=== PATIENT | male | born 1960 | race Caucasian/White ===

== ENCOUNTER → 2023-12-16 09:34 | Outpatient (REF) | payer OTHER, SELFPAY | LOC: HWRAD 09:34 | PROVIDERS: ATTENDING PHYSICIAN Family Medicine | DX: N50.3 Cyst of epididymis (principal) | CPT/HCPCS: 76870; 93976 ==

== ENCOUNTER 2024-08-14 21:21 | Observation (INO) | payer BC, SELFPAY ==
[2024-08-14] VITALS (42 sets, daily range): BP systolic 102–223; BP diastolic 59–201; BMI 28.3; BMI 25.2
[2024-08-14] MEDS: NITROSTAT (SUBLINGUAL) 0.4 MG SL (19:01)
[2024-08-14] MEDS: NITROGLYCERIN PREMIX 250 IV (19:11)
[2024-08-14 19:16] LABS: % Basophils 0.6 % (0-2); % Immature Granulocytes 0.2 % (0-0.5); % Lymphocytes 24.5 % (20.5-51.1); % Monocytes 9.9 % (1.7-9.3); % Neutrophils 63.8 % (42.2-75.2); Absolute Eosinophils 0.1 10^3/uL (0-0.7); Absolute Lymphocytes 1.5 10^3/uL (1.2-3.4); Absolute Monocytes 0.6 10^3/uL (0.1-0.6); Hematocrit 42.8 % (39.0-52.0); Mean Corp Hgb Conc. 32.7 g/dL (33.0-37.0); Mean Corpuscular Hgb 26.8 pg (27.0-31.0); Mean Corpuscular Volume 81.8 fL (80.0-94.0); Nucleated Red Blood Cells % 0 % (-); Platelet Count 186 10^3/uL (130-400); Red Blood Cell Count 5.23 10^6/uL (4.70-6.10); Red Cell Dist. Width 13.4 % (11.5-14.5); White Blood Cell Count 6.2 10^3/uL (4.8-10.8)
[2024-08-14] MEDS: HEPARIN 4000 UNITS IV (19:20)
[2024-08-14 19:23] LABS: APTT 30.2 Sec (23.4-35.0); INR 0.98; PT 13.3 Sec (11.4-14.6)
[2024-08-14 19:24] LABS: ALT (SGPT) 26 U/L (0-50); AST (SGOT) 34 U/L (17-59); Albumin 4.6 g/dl (3.5-5.0); Alkaline Phosphatase 46 U/L (38-126); Blood Urea Nitrogen 27 mg/dl (9-20); Calcium 9.5 mg/dl (8.4-10.2); Carbon Dioxide 23 mmol/L (22-30); Chloride 102 mmol/L (98-107); Estimated Creatinine Clearance 78 ml/min; Glucose 98 mg/dl (70-99); Potassium 4.1 mmol/L (3.5-5.1); Sodium 138 mmol/L (135-145); Total Bilirubin 0.5 mg/dl (0.2-1.3); Total Protein 7.5 g/dl (6.3-8.2); eGFR > 60.00
[2024-08-14 19:33] LABS: Troponin I < 0.012 ng/ml
--- NOTE | 2024-08-14 19:47 | ED.GENMED ---
History of Present Illness
General
Chief Complaint: Chest Pain
Source: patient
Exam Limitations: none
Time Seen by Provider: 08/14/24 18:57
Nursing documentation reviewed up to this point in time: agreed with
History of Present Illness
History of Present Illness:
Patient with history of CAD, presents ED secondary to sudden onset of chest pain while he was at home, associated with shortness of breath, dizziness, and diaphoresis. Patient also reports associated neck discomfort. Chest pain described as
pressure, nonradiating, without any alleviating or exacerbating factors. Patient was given full-strength aspirin by paramedics as well as nitroglycerin x 2, with moderate improvement in symptoms. Denies previous history of chest pain. However, in
2016, patient received diagnostic catheterization secondary to family history as well as high calcium score, which revealed 100% occlusion of RCA with collaterals, unable to be stented. In addition, patient also had 40% lesion in LAD. Denies
recent illness. Denies recent travel or surgery. Denies back pain. Denies leg pain or swelling.
Past History
Past History
ED Past Medical History: CAD, HTN and Hypercholesterolemia
ED Past Surgical History: None
Social History
Tobacco: Non-smoker
Alcohol: None
Personal:
Living: with family
Employment: Employed (sales)
Family History
Family History: Early CAD
Review of Systems
Review of Systems
Allergies reviewed?: Yes
All Other Systems: ROS reviewed and negative except as documented in HPI and ROS
Constitutional: Reports no symptoms
Respiratory: Reports trouble breathing
Cardiac: Reports chest pain and diaphoresis
ABD/GI: Reports no symptoms
Musculoskeletal: Reports no symptoms
Skin: Reports no symptoms
Neurological: Reports dizzy
Phy Exam
Physical Exam
Physical Exam:
Physical Exam
General: mild distress, not acutely ill. afebrile.
Head: nc/at. eomi
Neck: supple. normal range of motion.
Heart: s1/s2 regular rate and rhythm, no murmur. equal radial pulses.
Lungs: no acute respiratory distress. clear bilaterally
Abdomen: normal bowel sounds. not tender.
Neuro: alert and oriented. no focal neurological deficits
Skin: no rash
Psychiatric: well kept. interactive and cooperative
Extremities: no edema. no calf tenderness.
Scores
Heart Score for Chest Pain Patients
STEMI patient?: No
History: Moderately Suspicious
ECG: Normal
Age: >45 - <65 years
Risk Factors: >/= 3 Risk Factors or History of CAD
Troponin: </= Normal Limit
Heart Score for Chest Pain Patients: 4
Heart Score Risk: 20.3% MACE over next 6 weeks
Course
Orders/Labs/Results
Orders:
Orders
08/14/24 Dinner
Cholesterol Lowering
At Your Request: Full Participation
Cholesterol Lowering: Sodium, 2 Gram
Comment: please discontinue after midnight, NPO with breakfast
08/14/24 18:50
EKG [Electrocardiogram (*1)] Urgent
Reason for Study: Chest Pain
EKG- Treatment ONCE
08/14/24 18:57
Complete Blood Count/With Diff Urgent
Comprehensive Metabolic Panel Urgent
PT/INR [Prothrombin Time] Urgent
PTT Urgent
Comment: Obtain baseline before beginning heparin infusion if not already collected
Troponin I Urgent
08/14/24 18:59
Nitroglycerin 100 mg/250 ml [Nitroglycerin Premix] 100 mg in 250 ml .ROUTE .STK-MED
Nitroglycerin Sublingual [Nitrostat (Sublingual)] 0.4 mg .ROUTE .STK-MED ONE
08/14/24 19:06
Nitroglycerin Sublingual [Nitrostat (Sublingual)] 0.4 mg SL NOW STA
08/14/24 19:10
Heparin 4,000 units IV NOW STA
Nursing to Place Non Medication Order As Directed
Physician Order: PTT 6 hours after initial start of Heparin infusion
Above order entered?: Yes
08/14/24 19:15
Heparin 70955 Units/250 ml 25,000 units in 250 ml IV PER PROTOCOL
Weight to be used for heparin protocol in kilograms (kg):: 87
Protocol:: Cardiac Tx/Acute Coronary
PTT Goal Range to be used:: PTT 73 to 111 seconds
Order type:: Initial
INITIAL Infusion Dose (UNITS/KG/hr) & then follow protocol:: 12 units/kg/hr
Infusion Dose in UNITS/hr & then follow protocol (UNITS/hr):: 1,000
INFUSION RATE in mL/hr & then follow protocol (mL/hr):: 10
PTT less than or equal to 64 seconds:: Increase rate by 200 units/hr (+ 2 mL/hr)
PTT 64.1 to 72.9 seconds:: Increase rate by 100 units/hr (+ 1 mL/hr)
PTT 73 to 111 seconds:: Target Range. No change in rate.
PTT 111.1 to 130.9 seconds:: Decrease rate by 100 units/hr (- 1 mL/hr)
PTT 131 to 199.9 seconds:: HOLD for 1 hr. Then decrease rate by 200 units/hr (- 2 mL/hr)
PTT greater than or equal to 200 seconds:: HOLD for 2 hrs & Notify Provider. Then decrease by 200 units/hr (-
2 mL/hr)
Lab follow-up:: Each change, PTT q6h until 2 consecutive are therapeutic. Then PTT
daily.
Nitroglycerin 100 mg/250 ml [Nitroglycerin Premix] 100 mg in 250 ml IV PER PROTOCOL
Initial dose in mcg/min, then titrate:: 10
Titrate to keep:: Chest Pain Free
Titrate by mcg/min:: 5 mcg/min, may increase by 10 mcg/min if dose > 20 mcg/min
Frequency of titrations (minutes):: every 3-5 minutes
Maximum dose in mcg/min:: 200
Begin to taper infusion when:: Remained at goal for 2hrs
Taper by mcg/min:: 5 mcg/min
Frequency of taper (minutes) if patient maintains goal:: 30
Taper to off?: Yes
If infusion off & no longer maintaining goal:: Contact Provider
08/14/24 19:46
EKG [Electrocardiogram (*1)] Urgent
Reason for Study: Chest Pain
EKG- Treatment ONCE
08/14/24 21:11
Admit/Transfer Patient As Directed
Co-Sign Provider:
Level of Care: Observation services
Assign to:: IVU
Physician / Group: hospitalist
Diagnosis: acute chest pain
Code Status As Directed
Resuscitation Status: Full Code
PRN Pain Medication Management As Directed
May give lesser potent ordered pain med per pt: Yes
preference::
Protocol:: Medication orders for pain may be administered in a
manner that supports deferring to patient preference
when the pt is:
- Requesting an ordered lesser potent pain medication.
Least to most potent pain medications are defined
as: acetaminophen < NSAID < tramadol < opioids
(morphine, oxycodone, hydromorphone).
- Requesting a lesser dose of the same medication IF
ORDERED.
- Requesting a less intrusive route of administration
if both routes are prescribed by the provider (PO <
IV).
08/14/24 22:00
Flush (0.9% Sodium Chloride) [Flush (Nss)] See Dose Instructions IV PER PROTOCOL
08/14/24 22:22
Acetaminophen [Tylenol] 650 mg PO Q4HPRN PRN
Aspirin Low Dose EC [Aspir Low (Enteric Coated)] 81 mg PO HS
Atorvastatin [Lipitor] 40 mg PO HS
Mag Hydrox/Al Hydrox/Simeth [Maalox] 30 ml PO Q4HPRN PRN
Nitroglycerin 100 mg/250 ml [Nitroglycerin Premix] 100 mg in 250 ml IV PER PROTOCOL
Currently infusing. Continue current dose and titrate:: Yes
Titrate to keep:: Chest Pain Free
Titrate by mcg/min:: 5 mcg/min, may increase by 10 mcg/min if dose > 20 mcg/min
Frequency of titrations (minutes):: every 3-5 minutes
Maximum dose in mcg/min:: 200
Begin to taper infusion when:: Remained at goal for 2hrs
Taper by mcg/min:: 5 mcg/min
Frequency of taper (minutes) if patient maintains goal:: 30
Taper to off?: Yes
If infusion off & no longer maintaining goal:: Contact Provider
Ondansetron Injectable [Zofran] 4 mg IV Q6HPRN PRN
08/14/24 22:22
Echo 2D MMode Color/Doppler Routine
Reason for Study: chest pain
CARDIOLOGY CONSULT Routine
Consulting Provider: Romeo Hurd
Was physician already notified: Yes
Reason for consult: chest pain concerning for ACS,
VTE Contraindication Routine
VTE Mechanical Device Contraindication: Medical Contraindication
Pharmocologic Contraindication: Medical Contraindication
Heparin Protocol- PTT Orders As Directed
PTT per Heparin protocol: -Obtain CBC and baseline PTT - if not already collected.
-Obtain PTT 6 hours from start of infusion. Then, every 6 hours until 2 consecutive
PTT's are therapeutic. Then, PTT Daily.
-With each rate change, obtain PTT every 6 hours until 2 consecutive PTT's are
therapeutic. Then, PTT Daily.
Activity As Directed
Activity Level: With Assistance
INT (Intravenous Needle Therapy) As Directed
Comment: maintain peripheral IV access
Intake/ Output As Directed
Frequency: Per unit guidelines
Notify MD As Directed
Notify physician if: PTT is greater than or equal to 200.
Vital Signs As Directed
Frequency: q4h
Weight As Directed
Frequency: Once
08/14/24 22:33
Troponin I Q3H
Comment: at admit & Q3H for 3 total including ED draws, obtain ECG with each level
08/15/24 01:22
Troponin I Q3H
Comment: at admit & Q3H for 3 total including ED draws, obtain ECG with each level
08/15/24 02:00
PTT Urgent
08/15/24 03:00
Electrocardiogram (*1) Q3H
Reason for Study: Chest Pain
Comment: at admission and Q3H for total of 3, to be done with each troponin
08/15/24 04:22
Troponin I Q3H
Comment: at admit & Q3H for 3 total including ED draws, obtain ECG with each level
08/15/24 06:00
Electrocardiogram (*1) Q3H
Reason for Study: Chest Pain
Comment: at admission and Q3H for total of 3, to be done with each troponin
NPO
Allow oral meds: Yes
Allow clear liquids: Sips of Clears
Basic Metabolic Panel IN AM
Cardiovascular Evaluation IN AM
Complete Blood Count/No Diff IN AM
Glycohemoglobin (HgbA1c) IN AM
08/15/24 08:00
Amlodipine [Norvasc] 10 mg PO DAILY
Docusate Sodium [Colace] 100 mg PO BID
08/16/24 06:00
Complete Blood Count/No Diff Q2D
Comment: notify provider: Platelet count < 130,000 or decrease by 50% from baseline
08/18/24 06:00
Complete Blood Count/No Diff Q2D
Comment: notify provider: Platelet count < 130,000 or decrease by 50% from baseline
08/20/24 06:00
Complete Blood Count/No Diff Q2D
Comment: notify provider: Platelet count < 130,000 or decrease by 50% from baseline
08/22/24 06:00
Complete Blood Count/No Diff Q2D
Comment: notify provider: Platelet count < 130,000 or decrease by 50% from baseline
08/24/24 06:00
Complete Blood Count/No Diff Q2D
Comment: notify provider: Platelet count < 130,000 or decrease by 50% from baseline
08/26/24 06:00
Complete Blood Count/No Diff Q2D
Comment: notify provider: Platelet count < 130,000 or decrease by 50% from baseline
08/28/24 06:00
Complete Blood Count/No Diff Q2D
Comment: notify provider: Platelet count < 130,000 or decrease by 50% from baseline
08/30/24 06:00
Complete Blood Count/No Diff Q2D
Comment: notify provider: Platelet count < 130,000 or decrease by 50% from baseline
Abnormal Lab Results
08/14/24
18:57
MCH 26.8 L pg
(27.0-31.0)
MCHC 32.7 L g/dL
(33.0-37.0)
Monocytes % 9.9 H %
(1.7-9.3)
BUN 27 H mg/dl
(9-20)
08/14/24 18:57
08/14/24 18:57
Vital Signs
Initial and Last Documented VS:
Initial Vital Signs
Temp Pulse Resp Pulse Ox
98.2 F 64 15 99
08/14/24 18:51 08/14/24 18:51 08/14/24 18:51 08/14/24 18:51
Last Documented Vital Signs
Temp Pulse Resp BP Pulse Ox
98.4 F 56 20 102/62 97
08/14/24 22:16 08/14/24 23:00 08/14/24 22:16 08/14/24 22:52 08/14/24 23:16
MDM/Problems Addressed
MDM/Problems Addressed:
EKG: No acute ST changes. History and exam concerning for acute coronary syndrome.
Patient given additional sublingual nitroglycerin with improvement of symptoms. As such, decision made to start patient on nitroglycerin infusion as well as heparin protocol.
Discussed with on-call cardiology, Dr. Hurd, who agrees with plan to admit the patient on the hospital service for continued treatment, with consideration for catheterization in a.m., if symptomatic or increased troponin level.
Critical care statement: A total of 40 minutes of critical care time was provided for this patient. This includes management of unstable vital signs, evaluation of the patient at bedside, reviewing the patient's pertinent medical records, discussion
with consultants, review of old EKGs and review of pertinent medical records. This time with separate from time utilized to perform the aforementioned documented procedures
*Critical Care Note
Total Time (30-74mins, 75-104mins- exclusive of procedures): 40 min
ED Attending Note
-
Portions of this chart may have been created with voice recognition software.� Occasional wrong word or��sound alike� substitutions may have occurred due to the inherent limitations of voice recognition software.
Discharge Plan
Departure
Patient Disposition: Admit
Date of Disposition: 08/14/24
Time of Disposition: 20:10
Admit to: IVU
Presentation/result/management discussed w/ accepting MD/DO: Hospitalist
Discharge Problem:
Chest pain
Interventions
Interventions:
*Risk Screen - Suicide Last Done: 08/14/24 18:59
*General Assessment Last Done: 08/14/24 18:59
*Neglect/Abuse Screening Last Done: 08/14/24 18:59
ED- Fall Risk Assessment Last Done: 08/14/24 18:59
*ED COVID-19 Vaccine History Last Done: 08/14/24 18:59
*Nursing Disposition Last Done: 08/14/24 22:18
ED- Cardiac Assessment Last Done: 08/14/24 18:59
Discharge Date and Time
Discharge Date/Time: 08/14/24 22:19
[2024-08-14] MEDS: HEPARIN 25000 UNITS/250 ML IV (19:55)
--- NOTE | 2024-08-14 21:00 | HPS.HSE ---
Family Physician
-
Family Physician: Amado Franco
Chief Complaint
-
Chest pain
History of Present Illness
This is a 63-year-old was a past medical history of coronary artery disease status post cath in 2017 showing complete total occlusion of the RCA, minimal disease in the LAD on aspirin and statin who presents to the emergency department today with
chest pain at rest.
Patient reported a stressful day and rising blood pressure at home. He reported neck pain earlier in the morning. In the evening he started having substernal chest pressure that radiated to the left arm. He had nausea without diaphoresis. He
requested that his bring him to the emergency department. On the way to the emergent department the patient felt lightheaded and fell down without injuring himself or hitting his head. He denied having shortness of breath, palpitations.
Patient denies any recent episodes of exertional chest pain. He exercises several times a week. He reports that he has known sinus bradycardia in the 40s to 50s. However when he exercises his heart rate can go up to the 140s without any symptoms.
Over the last few weeks his heart rate has accelerated to 160s with exercise but without any chest pain or worsening exertional dyspnea.
Patient reported that it received 2 nitroglycerin en route to the emergency department and this chest pain started to ease. When he received a total of nitroglycerin in the emergency department his chest pain did resolve.
In the ED his blood pressure was 104/65 with a pulse of 50. Initial troponin was negative. ECG shows sinus bradycardia with a rate of 53, no acute ST or T wave changes. CBC was unremarkable. Likewise his chemistries BUN and creatinine were
within normal limits.
Medical History
Past Medical History
Past Medical History: Reports CAD and HTN
Past Surgical History: Reports None
Social History
Tobacco: Non-smoker
Alcohol: Occasional
Drug: None
Personal:
Living: With Family
Employment: Employed
Family History
Family History: Early CAD
Allergies / Home Medications
Allergies reflects when Allergies were last updated in [facility].
Home Medications with original date entered in [facility]
Allergy/Medication List:
Allergies
Allergy/AdvReac Type Severity Reaction Status Date / Time
No Known Allergies Allergy Verified 08/14/24 19:11
Home Medications
aspirin 81 mg tablet,delayed release 81 mg PO HS 12/09/16
atorvastatin 40 mg tablet 40 mg PO HS 12/09/16
amlodipine 10 mg tablet (Norvasc) 10 mg PO DAILY 11/25/20
Review of Systems
-
History Source: Patient
Constitutional: Reports No Symptoms
EENT: Reports No Symptoms
Respiratory: Reports No Symptoms
Cardiac: Reports Chest Pain
Abdomen/GI: Reports No Symptoms
: Reports No Symptoms
Musculoskeletal: Reports No Symptoms
Skin: Reports No Symptoms
Neurological: Reports No Symptoms
Endocrine: Reports No Symptoms
Hematologic/Lymphatic: Reports No Symptoms
Psych: Reports No Symptoms
Physical Exam
Vital Signs
Vital Signs
Temp Pulse Resp BP Pulse Ox
98.2 F 58 13 116/62 98
08/14/24 18:51 08/14/24 20:40 08/14/24 20:40 08/14/24 20:40 08/14/24 20:40
Physical Exam
General: Well Developed, Well Nourished, No Apparent Distress, Comfortable and Conversant
HEENT: NormoCephalic, Anicteric, Moist mucous membranes and Atraumatic
Respiratory: Clear
Cardiac: S1/S2 and Bradycardia
Breast: Deferred by me
GI: Soft, Non Tender and Non Distended
Rectal: Deferred by Provider
Genito-urinary: Deferred by me
Musculoskeletal: No Clubbing, No Cyanosis and No Edema
Skin: Warm
Neuro: Awake, AO x 3 and Nonfocal/grossly intact
Psych: Calm
Laboratory Results
-
08/14/24 18:57
08/14/24 18:57
Laboratory Results
PT 13.3 Sec (11.4-14.6) 08/14/24 18:57
INR 0.98 08/14/24 18:57
APTT 30.2 Sec (23.4-35.0) 08/14/24 18:57
Total Bilirubin 0.5 mg/dl (0.2-1.3) 08/14/24 18:57
AST 34 U/L (17-59) 08/14/24 18:57
ALT 26 U/L (0-50) 08/14/24 18:57
Alkaline Phosphatase 46 U/L (38-126) 08/14/24 18:57
Troponin I < 0.012 ng/ml 08/14/24 18:57
Data Reviewed
-
Medical Tests (Nuc Med, Echo, EKG etc): Image Personally Visualized and interpreted
Lab Data: Labs Reviewed by me
Old Records: Reviewed
Impression/Plan
-
IMPRESSION:
63-year-old with known history of CAD with total occlusion of the RCA with collaterals, previously asymptomatic presenting to the emergency department with substernal chest pain radiating to the left arm associated w/nausea and vomiting. Improved
with nitroglycerin. Currently on nitroglycerin drip and chest pain-free. ECG shows sinus bradycardia, troponin initially negative and patient hemodynamically stable.
PLAN:
1. Acute chest pain - Concern for ACS high due to history, prior cath showing disease and presenting symptoms.
- admit to ivu
- continue ntg gtt
- continue heparin gtt
- s/p aspirin today
- continue statin and daily aspirin tomorrow
- cycle cardiac enzymes and ecg
- cardiology aware, npo after midnight for possible cath in am
- cardiology consulted
DVT PPX - on heparin sq
Code status - full code
[2024-08-14] MEDS: LIPITOR 40 MG PO (23:03)
[2024-08-14 23:09] LABS: Troponin I < 0.012 ng/ml
--- NOTE | 2024-08-14 23:09 | PTCARENOTE ---
received patient from the ED. at the bedside. AAOx3. denies any cp/sob. denies any lightheadedness/dizziness. SB on tele 50s. bp stable. nitro and heparin gtt infusing per protocol. educated patient to inform RN with any changes. NPO at
midnight. trop/EKG completed per order. call rausch within reach. oriented to room.
[2024-08-15 00:05] VITALS: BP 109/64
[2024-08-15 02:04] VITALS: BP 104/64
[2024-08-15 02:24] LABS: Hematocrit 37.6 % (39.0-52.0); Hemoglobin 12.5 g/dL (13.0-18.0); Mean Corp Hgb Conc. 33.2 g/dL (33.0-37.0); Mean Corpuscular Hgb 26.9 pg (27.0-31.0); Mean Platelet Volume 9.7 fL (7.4-10.4); Platelet Count 164 10^3/uL (130-400); Red Blood Cell Count 4.64 10^6/uL (4.70-6.10); Red Cell Dist. Width 13.5 % (11.5-14.5); White Blood Cell Count 4.7 10^3/uL (4.8-10.8)
[2024-08-15 02:32] LABS: APTT 96.5 Sec (23.4-35.0)
[2024-08-15 02:43] LABS: Troponin I < 0.012 ng/ml
[2024-08-15 02:57] LABS: Blood Urea Nitrogen 26 mg/dl (9-20); Calcium 8.9 mg/dl (8.4-10.2); Carbon Dioxide 26 mmol/L (22-30); Chloride 107 mmol/L (98-107); Estimated Creatinine Clearance 86 ml/min; Glucose 87 mg/dl (70-99); HDL Cholesterol 66 mg/dl; LDL Cholesterol, Calculated 53 mg/dl; Potassium 3.6 mmol/L (3.5-5.1); Sodium 139 mmol/L (135-145); Total Cholesterol 128 mg/dl (50-199); Triglyceride 49 mg/dl (10-149); Very Low Density Lipoprotein 9 mg/dl (0-30); eGFR > 60.00
[2024-08-15 03:47] LABS: Hepatitis C Antibody Negative (Negative)
[2024-08-15 05:53] VITALS: BP 114/65
--- NOTE | 2024-08-15 05:55 | PTCARENOTE ---
chest pain free overnight. SB 40s. bp stable. ambulated to the BR with no issues. NPO since midnight.
[2024-08-15 06:55] VITALS: BP 110/64
--- NOTE | 2024-08-15 06:57 | W.PN.HOSP.TC ---
Addendum entered and electronically signed by Ying Pedersen MD 08/15/24 15:54:
Addendum
Discussed with banquet pilot, okay to go home with no changes to his medications.
I went to see the patient again in the room. His was present. Both reported willingness to go home. Patient did not have chest pain and felt comfortable to follow-up with cardiology in the outpatient setting. Patient denied depression and
reported his stress at home had resolved and they were able to manage it. Discussed with nursing staff.
Total discharge time spent to see the patient, examine the patient, review data and lab results, discuss the discharge plan with patient and his , cardiology service, nursing staff around 65 minutes
Original Note:
Today's Communication/Plan
-
Cardiology evaluation
Troponin negative X 4
Assessment / Plan
Assessment / Plan
Physical Exam
General: Well Developed, Well Nourished, No Apparent Distress, Comfortable and Conversant
HEENT: NormoCephalic, Anicteric, Moist mucous membranes and Atraumatic
Respiratory: Clear
Cardiac: S1/S2 and Bradycardia
GI: Soft, Non Tender and Non Distended
Rectal: no bleeding
Genito-urinary: No hematuria
Musculoskeletal: No Clubbing, No Cyanosis and No Edema
Skin: Warm
Neuro: Awake, AO x 3 and Nonfocal/grossly intact
Psych: Calm
63-year-old with known history of CAD with total occlusion of the RCA with collaterals, previously asymptomatic presenting to the emergency department with substernal chest pain radiating to the left arm associated w/nausea and vomiting. Improved
with nitroglycerin. Currently on nitroglycerin drip and chest pain-free. ECG shows sinus bradycardia, troponin initially negative and patient hemodynamically stable.
A/p:
# Acute chest pain
Troponin X 4 negative
No acute ischemic changes on EKG
No chest pain over night
on ntg gtt & heparin gtt
Possible non cardiac, pt tells me that he had 40 % blockage in coronary in past. Stress echo in 2020 as good with low risk exercise stress study in a patient with a Smith treadmill score of 10 and no evidence of stress-induced ischemia on stress echo
imaging. Pt has active lifestyle
- s/p aspirin
- continue statin and daily aspirin
- cardiology consulted
DVT PPX - on heparin sq
Code status - full code
Total time spent to see the patient, examine the patient, review data and lab results, discuss the treatment plan with patient, nursing staff around 55 minutes
Anticipated Discharge: Today
Subjective/Interval History
-
Date of Service: August 15, 2024
No chest pain
No fevers
No abdominal pain
Objective Data
-
Labs:
Laboratory Results
08/14/24 08/15/24 08/15/24
18:57 02:08 08:10
WBC 6.2 4.7 L
Hgb 14.0 12.5 L
Hct 42.8 37.6 L
Plt Count 186 164
PT 13.3
INR 0.98
APTT 30.2 96.5 H Pending
Sodium 138 139
Potassium 4.1 3.6
Chloride 102 107
Carbon Dioxide 23 26
BUN 27 H 26 H
Creatinine 1.0 0.9
Glucose 98 87
Calcium 9.5 8.9
Total Bilirubin 0.5
AST 34
ALT 26
Alkaline Phosphatase 46
Vital Signs:
Vital Signs
Temp Pulse Resp BP Pulse Ox
97.8 F 45 16 114/65 97
08/15/24 06:55 08/15/24 06:30 08/15/24 06:55 08/15/24 05:53 08/15/24 06:55
I&O
08/13/24 08/14/24 08/15/24
06:59 06:59 06:59
Intake Total 250 / 250
Balance 250 / 250
--- NOTE | 2024-08-15 07:37 | CON.CAR ---
Addendum entered and electronically signed by Levi Kaplan MD 08/15/24 09:47:
Attending addendum: Patient seen and examined. Patient is physically very active exercising most days at a local gym with no functional limitation. He shoveled snow 1 day before admission and experienced no exertional chest discomfort. On the day
of admission he was in a heightened emotional state when he noticed the onset of chest tightness. His symptoms resolved and his troponin has serially been undetectable. We discussed treatment options and he would lean more towards conservative
evaluation beginning with an exercise stress echocardiogram. If he develops recurring symptoms we can always refer for coronary angiography. Blood pressure is LDL cholesterol look excellent. Will discontinue IV heparin and nitrates for stress
study. Any concerning symptoms or stress echo findings would prompt coronary angiography.
Original Note:
Consultation
Consultation Request
Date/Time Consultation Requested: 08/14/57 at 2222
Date/Time Consultation Performed: 08/15/24 at 0739
Requesting Provider: Dr. Pedersen
Performing Provider: Dr. Hurd
Reason for Consultation: Chest pain
Medical History
-
History of Present Illness:
Patient came to [facility] yesterday with chest pain and cardiology has been consulted. Patient with h/o cardiac cath 12/16/16 that revealed a 40% proximal LAD lesion and a 100% mid RCA occlusion. There was an attempt to open the RCA that was unsuccessful,
but he had excellent collateral flow at that time. Patient had SE 11/2020 in the setting of syncope with exercise and completed 15 min with abnormal ECG, but normal imaging. No interval pains and says that he was able to shovel snow on Thursday
without chest pain, but was seated at home on Thursday and had an emotionally stressful event and afterwards started with chest pain. Chest pain persisted and his checked his BP and it was 180/90. Patient asked his to drive him to the ER and
when he walked to the garage to get into the car he became near syncopal and his called 911. Patient reports chest pain was present for about 30 minutes all together and paramedics gave patient NTG SL x1 and pain went from 10/10 to 8/10. Second
NTG SL given by paramedics took him down to a 5/10. Patient still had pain when he arrived in [facility] and was given a 3rd NTG SL and pain went down to 1-2/10. Patient was started on a NTG gtt and has been pain free since then. Patient also started on
Heparin gtt. Troponin serially undetectable.
PMH:
CAD, known 100% RCA FILTER MACHINE OPERATOR unable to be opened 11/2016 and 40% LAD
HTN
Hyperlipidemia
FH premature CAD
Past Medical History
Past Medical History: Other (in HPI)
Past Surgical History: None
Social History
Tobacco: Non-Smoker
Alcohol: Occasional
Drug: None
Personal:
Living: With Family
Employment: Retired
Family History
Family History: CAD (Brother from [place] in 50's) and Cancer
Allergies / Home Medications
Allergy/AdvReac Type Severity Reaction Status Date / Time
No Known Allergies Allergy Verified 08/14/24 19:11
�Medication �Instructions �Recorded �Confirmed �Type
aspirin 81 mg tablet,delayed 81 mg PO HS 12/09/16 08/14/24 History
release
atorvastatin 40 mg tablet 40 mg PO HS 12/09/16 08/14/24 History
amlodipine 10 mg tablet (Norvasc) 10 mg PO DAILY 11/25/20 08/14/24 History
Review of Systems
-
History Source: Patient
All other systems: Negative unless noted
Physical Exam
Vital Signs
Temp Pulse Resp BP Pulse Ox
97.8 F 45 16 114/65 97
08/15/24 06:55 08/15/24 06:30 08/15/24 06:55 08/15/24 05:53 08/15/24 06:55
GEN: NAD. AAOx3
HEENT: EOMI, MMM
LUNGS: CTA B/L, no wheezes or rales
CV: Reg, S1/S2, no murmur
ABD: soft, BS+, NT, ND
EXT: No clubbing, cyanosis, lesions or edema B/L
NEURO: Gross non-focal
SKIN: Warm, dry and pink. No rash
Lab Results
08/15/24 02:08
08/15/24 02:08
Troponin I < 0.012 ng/ml 08/15/24 02:08
Impression / Plan
-
Primary travel registered nurse pacu: Dr. Teixeira
PCP: Dr. Amado Franco
Impression:
Chest pain
CAD, known 100% RCA FILTER MACHINE OPERATOR unable to be opened 11/2016 and 40% LAD
HTN
Hyperlipidemia
FH premature CAD
Stress echo 11/26/20: Normal LV function, no ischemia at 15 minutes of Han protocol, exercise electrocardiogram was borderline with 0.5-[address] depression that persisted 3-1/2 minutes into recovery, stress echo imaging was of good quality and no
stress-induced ischemia was identified
Cath 12/16/16: There is a calcified plaque in the proximal LAD stenosis of 40%, there is a 100% total occlusion of the mid RCA. Excellent collaterals from the left coronary fill the distal RCA.
Plan:
-Patient came to [facility] yesterday with chest pain and cardiology has been consulted. Patient with h/o cardiac cath 12/16/16 that revealed a 40% proximal LAD lesion and a 100% mid RCA occlusion. There was an attempt to open the RCA that was
unsuccessful, but he had excellent collateral flow at that time. Patient had SE 11/2020 in the setting of syncope with exercise and completed 15 min with abnormal ECG, but normal imaging. No interval pains and says that he was able to shovel snow on
Thursday without chest pain, but was seated at home on Thursday and had an emotionally stressful event and afterwards started with chest pain. Chest pain persisted and his checked his BP and it was 180/90. Patient asked his to drive him to
the ER and when he walked to the garage to get into the car he became near syncopal and his called 911. Patient reports chest pain was present for about 30 minutes all together and paramedics gave patient NTG SL x1 and pain went from 10/10 to
8/10. Second NTG SL given by paramedics took him down to a 5/10. Patient still had pain when he arrived in [facility] and was given a 3rd NTG SL and pain went down to 1-2/10. Patient was started on a NTG gtt and has been pain free since then. Patient also
started on Heparin gtt. Troponin serially undetectable.
-ECG reviewed by me with sinus bradycardia without acute ischemic changes
-Troponin serially undetectable
-Chest pain free since admission with NTG gtt and Heparin gtt. Will stop both gtt now.
-Talked with patient about possibilities of stress test vs cath. Talked about risk vs benefit of cath and patient asks about starting with stress test. Patient had SE in 2020 as noted above and so will check another SE now.
-BP controlled now, but HTN at 223/139 while in the ER. Patient takes amlodipine 10 mg daily and reports BP usually controlled at home.
-Sinus bradycardia on ECG and tele review by me, but no heart block. Patient reports HR up to 140-160 with exercise at home. Will follow HR response on stress test.
-LDL 53 and outpatient dose of atorvastatin 40 mg daily has been continued
-Outpatient dose of aspirin 81 mg daily has been continued
[2024-08-15 08:44] LABS: APTT 78.6 Sec (23.4-35.0)
[2024-08-15 08:53] LABS: Troponin I < 0.012 ng/ml
--- NOTE | 2024-08-15 11:04 | CM ---
Chart reviewed. Patient is independent of ADLS, lives with his in a 2 [address], 1 ABHI, 0 DME. Plan is for the patient to return home with CT Transitional RN. CM to follow
--- NOTE | 2024-08-15 11:15 | PTCARENOTE ---
Pt returned from stress test, A,A+Ox3. Denies pain.
[2024-08-15 11:42] VITALS: BP 116/65
[2024-08-15 13:06] LABS: Glycohemoglobin (HgbA1c) 5.7 % (4.0-5.6)
--- NOTE | 2024-08-15 14:59 | W.PN.UPDATE ---
Update Note
Progress Note Update
Talked to patient and his in the room. Reviewed results of echo and stress echo. Patient completed 14 min Han protocol and peak BP was 164/70 and peak HR 141. No ischemic changes on echo imaging. Troponin serially undetectable. EF preserved
by echo and no significant valve disease. Patient rarely has chest pain and yesterday was an unexpected emotional stressor. Patient has used Xanax in the past with success for mitigating stress surrounding flights and we talked about using Xanax for
an event like what he had yesterday as well, but that more effective long-term solutions might be cognitive therapy for dealing with stress and/or adding an SSRI. Patient can be d/c'd to home from a cardiac standpoint. TT update to hospitalist
attending.
--- NOTE | 2024-08-15 15:42 | W.DCSUMMARY ---
Discharge Summary
Discharge Data
Date of Admission: 08/14/24
Date of Discharge: 08/15/24
-
Pending Results: No
Hospital Course
63 years old male presented to the emergency department chest pain, he reported a stressful day with his family and rising blood pressure at home. He reported neck pain earlier in the morning. His chest pain radiated to the left arm. He had
nausea without diaphoresis. In the ED his blood pressure was 104/65 with a pulse of 50. Initial troponin was negative and also subsequent checks . ECG showed sinus bradycardia with a rate of 53, no acute ST or T wave changes. CBC was
unremarkable. Basic metabolic panel was within normal limits. Patient was evaluated by resident care associate, after discussing the plan with patient. Patient underwent stress echocardiogram. Patient completed 14 min Han protocol and peak BP was 164/70 and
peak HR 141. No ischemic changes on echo imaging. left ventricle EF preserved by echo and no significant valve disease. Patient was advised to follow with his primary care doctor regarding stress/ anxiety control. Discussed with patient and his
at bedside, they both felt comfortable to go home and reported patient was not under stress at home and was able to manage it for now. Patient did not have depression. He remained hemodynamically stable and was discharged home in a stable condition.
Discharge Plan
-
Patient Disposition: Home (Routine Discharge)
Discharge Diagnosis/Procedures: Chest pain
Diet: As tolerated
Referrals:
Amado Franco MD [Family Provider] -
Chris Teixeira MD [Active] - 01/04/25 8:00 am (You are scheduled to see Dr. Teixeira at the [place] office on 01/04/25 at 8 AM. Please call [phone] if you need to reschedule.)
Prescriptions:
Continued
atorvastatin 40 MG tablet
40 mg PO HS
aspirin 81 MG tablet,delayed release (DR/EC)
81 mg PO HS
amlodipine [Norvasc] 10 MG tablet
10 mg PO DAILY
Discharge Orders:
Discharge Patient (As Directed); Ordered 08/15/24
Ordered By: Ying Pdeersen
Care Plan Goals
Care Plan Goals:
Problem: Readiness for enhanced knowledge related to diagnosis and treatment plan
Goal: Understand your diagnosis and treatment plan needs, including medications if applicable.
Instructions: Know your diagnosis, underlying causes and treatment plan options, including medications if applicable. Consult with your health care team to learn about your diagnosis and treatment plan, including medications if applicable.
Discharge Date and Time
Print Language: [id number]
== END 2024-08-15 16:00 | disposition home or self-care (01) ==
LOC: IVU 21:21
PROVIDERS: ADMITTING PHYSICIAN Internal Medicine; ATTENDING PHYSICIAN Internal Medicine; EMERGENCY PHYSICIAN Emergency Medicine; FAMILY PHYSICIAN Family Medicine; OTHER PHYSICIAN Internal Medicine Interventional Cardiology
DX: R07.9 Chest pain, unspecified (principal); I25.10 Atherosclerotic heart disease of native coronary artery without angina pectoris; E78.00 Pure hypercholesterolemia, unspecified; I10 Essential (primary) hypertension; R06.02 Shortness of breath; R42 Dizziness and giddiness; R61 Generalized hyperhidrosis; M54.2 Cervicalgia; R94.31 Abnormal electrocardiogram [ECG] [EKG]; R00.1 Bradycardia, unspecified; Z82.49 Family history of ischemic heart disease and other diseases of the circulatory system; Z79.82 Long term (current) use of aspirin
CPT/HCPCS: 93017; 80048; 80053; 80061; 83036; 84484; 85025; 85027; 85610; 85730; 86803; 93005; 93320; 93325; 93350; 96374; 96375; 96376; 99291; G0378